=== PATIENT | male | born 1970 | race Caucasian/White ===

== ENCOUNTER 2019-03-26 20:26 | Emergency (ER) | payer BC ==
--- NOTE | 2019-03-26 20:49 | EDM.PDOC ---
ED HPI GENERAL MEDICAL PROBLEM - General Chief Complaint: General Stated Complaint: LIGHT HEADED Time Seen by Provider: 03/26/19 20:45 Source of Information: Reports: Patient History Limitations: Reports: No Limitations - History of Present Illness INITIAL COMMENTS - FREE TEXT/NARRATIVE: 48-year-old male who reports that he awoke at 5:30 AM today and rolled over on his side and had fairly intense lightheadedness. He reports that lightheadedness to him felt like the room was spinning. He did lay back down and the symptoms seemed to subside somewhat. He then was able to get up but noted that the dizziness and lightheadedness seemed to be worse with movement of his head from a lying to seating position but he was able to get up and actually went to work. He continued to have intermittent problems for the day and then when he came home at around 4 PM he took a nap until roughly 6:30 PM and still had the feeling of lightheadedness and room spinning. He had no headache. No chest pain. He had no localized area of numbness or weakness. He took another nap and when he awoke he was still having the symptoms and then had nausea with vomiting. He continues to have nausea and responding dizziness but no pain right now he would rate his pain as a 0/10. No vision problems. No ear pain or tinnitus and no ear discharge. No urinary symptoms. No diarrhea. He does report that he has been eating and drinking today just less than normal. There are no other associated signs or symptoms. There are no other modifying factors. 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 (see below) (Nothing) - Related Data Allergies Allergy/AdvReac Type Severity Reaction Status Date / Time No Known Allergies Allergy Verified 03/26/19 21:09 Home Meds: Home Meds Metoprolol Succinate 25 mg PO DAILY 03/26/19 [History] Triamterene/Hydrochlorothiazid [Triamterene-HCTZ 37.5-25 MG] 2 cap PO DAILY [History] Meclizine HCl 25 mg PO Q6H PRN #16 tablet 03/27/19 [Rx] Promethazine [Phenergan] 25 mg PO Q6H PRN #16 tab 03/27/19 [Rx] Past Medical History Cardiovascular History: Reports: Hypertension Musculoskeletal History: Reports: Other (See Below) (Peripheral edema on diuretic for this.) Endocrine/Metabolic History: Reports: Obesity/BMI 30+ - Past Surgical History Musculoskeletal Surgical History: Reports: Arthroscopic Knee (Bilateral knee arthroscopies 2) Social & Family History - Tobacco Use Smoking Status *Q: Never Smoker - Alcohol Use Alcohol Use Frequency: Rarely (Occasional alcohol use) - Living Situation & Occupation 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 ED ROS GENERAL - Review of Systems Review Of Systems: See Below Constitutional: Reports: No Symptoms HEENT: Reports: Vertigo Respiratory: Reports: No Symptoms Cardiovascular: Reports: No Symptoms Endocrine: Reports: No Symptoms GI/Abdominal: Reports: Nausea, Vomiting : Reports: No Symptoms Musculoskeletal: Reports: No Symptoms Skin: Reports: No Symptoms Neurological: Reports: Dizziness Hematologic/Lymphatic: Reports: No Symptoms Immunologic: Reports: No Symptoms ED EXAM, GENERAL - Physical Exam Exam: See Below Exam Limited By: No Limitations General Appearance: Alert, WD/WN, Moderate Distress Eye Exam: Bilateral Eye: EOMI (Mild lateral gaze nystagmus bilaterally), Normal Inspection, PERRL Ears: Normal External Exam, Normal TMs Ear Exam: Bilateral Ear: Auricle Normal, Canal Normal, TM normal Nose: Normal Inspection, Normal Mucosa, No Blood Throat/Mouth: Normal Voice, No Airway Compromise, Other (Somewhat dry mucous membranes) Head: Atraumatic, Normocephalic Neck: Normal Inspection, Supple, Non-Tender, Full Range of Motion Respiratory/Chest: No Respiratory Distress, Lungs Clear, Normal Breath Sounds, No Accessory Muscle Use, Chest Non-Tender Cardiovascular: Normal Peripheral Pulses, Regular Rate, Rhythm, No JVD Peripheral Pulses: 2+: Radial (L), Radial (R), Dorsalis Pedis (L), Dorsalis Pedis (R) GI/Abdominal: Normal Bowel Sounds, Soft, Non-Tender, No Mass, Other (Protuberant ) Back Exam: Normal Inspection Extremities: Normal Inspection, Normal Range of Motion, Non-Tender, Normal Capillary Refill, Pedal Edema (Trace, chronic) Neurological: Alert, Oriented, CN II-XII Intact, Normal Cognition, No Motor/ Sensory Deficits Skin Exam: Warm, Dry, Intact, Normal Color, No Rash EKG INTERPRETATION EKG Date: 03/26/19 Time: 20:41 Rhythm: NSR [place]: Normal P-Wave: Present QRS: Other (Nonspecific intraventricular conduction delay) ST-T: Other (Poor R-wave progression. Nonspecific ST-T changes) QT: Prolonged Comparison: NA - No Prior EKG Course - Vital Signs Last Recorded V/S: Last Vital Signs Temp 36.4 C 03/26/19 21:15 Pulse 68 03/26/19 21:15 Resp 22 H 03/26/19 21:15 BP 149/92 H 03/26/19 21:15 Pulse Ox 94 L 03/26/19 21:15 - Orders/Labs/Meds Orders: Active Orders 24 hr Category Date Time Status EKG Documentation Completion [RC] ASDIRECTED Care 03/26/19 20:51 Active Chest 1V Frontal [CR] Stat Exams 03/26/19 20:50 Taken Head wo Cont [CT] Stat Exams 03/26/19 21:06 Ordered Sodium Chloride 0.9% [Saline Flush] Med 03/26/19 20:50 Active 10 ml FLUSH ASDIRECTED PRN Peripheral IV Insertion Adult [OM.PC] Routine Oth 03/26/19 20:50 Ordered EKG 12 Lead [EK] Routine Ther 03/26/19 20:50 Ordered Medication Orders Sodium Chloride (Saline Flush) 10 ml FLUSH ASDIRECTED PRN PRN Reason: Keep Vein Open Labs: Laboratory Tests 03/26/19 03/26/19 03/26/19 Range/Units 20:59 20:59 20:59 WBC 11.2 (4.5-12.0) X10-3/uL RBC 5.55 (4.30-5.75) x10(6)uL Hgb 16.9 (13.5-17.8) g/dL Hct 48.5 (30.0-51.3) % MCV 87.5 (80-96) fL MCH 30.5 (27.7-33.6) pg MCHC 34.8 (32.2-35.4) g/dL RDW 13.3 (11.5-15.5) % Plt Count 189 (125-369) X10(3)uL MPV 9.7 (7.4-10.4) fL Neut % (Auto) 71.6 (46-82) % Lymph % (Auto) 17.3 (13-37) % [place] % (Auto) 6.6 (4-12) % Eos % (Auto) 3 (1.0-5.0) % Baso % (Auto) 1 (0-2) % Neut # (Auto) 8.1 (1.6-8.3) # Lymph # (Auto) 1.9 (0.6-5.0) # [place] # (Auto) 0.7 (0.0-1.3) # Eos # (Auto) 0.4 (0.0-0.8) # Baso # (Auto) 0.1 (0.0-0.2) # Sodium 143 (135-145) mmol/L Potassium 3.3 L (3.5-5.3) mmol/L Chloride 105 (100-110) mmol/L Carbon Dioxide 30 (21-32) mmol/L BUN 16 (7-18) mg/dL Creatinine 1.1 (0.70-1.30) mg/dL Est Cr Clr Drug Dosing TNP Estimated GFR (MDRD) > 60 (>60) BUN/Creatinine Ratio 14.5 (9-20) Glucose 111 (80-116) mg/dL Calcium 8.5 L (8.6-10.2) mg/dL Total Bilirubin 0.5 (0.1-1.3) mg/dL AST 18 (5-25) IU/L ALT 34 (12-36) U/L Alkaline Phosphatase 98 (56-112) IU/L Troponin I < 0.017 L (<0.017-0.056) ng/mL C-Reactive Protein 0.9 (0.5-0.9) mg/dL Total Protein 7.0 (6.0-8.0) g/dL Albumin 3.4 L (3.5-5.2) g/dL Globulin 3.6 g/dL Albumin/Globulin Ratio 0.9 Meds: Medications Generic Name Dose Route Start Last Admin Trade Name Freq PRN Reason Stop Dose Admin Sodium Chloride 10 ml 03/26/19 20:50 Saline Flush FLUSH ASDIRECTED PRN Keep Vein Open Discontinued Medications Generic Name Dose Route Start Last Admin Trade Name [place] PRN Reason Stop Dose Admin Diazepam 2.5 mg 03/26/19 21:06 03/26/19 21:42 Valium IV 03/26/19 21:07 2.5 mg ONETIME ONE Administration Diazepam 2.5 mg 03/26/19 22:35 03/26/19 22:48 Valium IV 03/26/19 22:36 2.5 mg ONETIME ONE Administration Sodium Chloride 1,000 mls @ 999 mls/hr 03/26/19 20:51 03/26/19 21:43 Normal Saline IV 03/26/19 21:51 999 mls/hr .BOLUS ONE Administration Promethazine HCl 25 mg/ Sodium 51 mls @ 200 mls/hr 03/26/19 22:36 03/26/19 22 :48 Chloride IV 03/26/19 22:51 200 mls/hr ONETIME ONE Administration Sodium Chloride 1,000 mls @ 999 mls/hr 03/26/19 22:36 03/26/19 22:49 Normal Saline IV 03/26/19 23:36 999 mls/hr .BOLUS ONE Administration Meclizine HCl 25 mg 03/26/19 22:35 03/26/19 22:48 Antivert PO 03/26/19 22:36 25 mg ONETIME ONE Administration Ondansetron HCl 4 mg 03/26/19 20:51 03/26/19 21:42 Zofran IVPUSH 03/26/19 20:52 4 mg ONETIME ONE Administration - Radiology Interpretation Free Text/Narrative:: Chest x-ray showed no acute disease. - Re-Assessments/Exams Free Text/Narrative Re-Assessment/Exam: 03/26/19 22:50: After 1 back of IV normal saline, Zofran and Valium IV, the patient feels improved but still somewhat nauseated. His dizziness is less. He refused the CT scan. However, he still has no localized area of numbness or weakness and really no signs of an acute CVA. His blood tests are reassuringly normal. His chest x-ray was normal. His EKG was normal. He appears to have peripheral vertigo most probably related to a viral labyrinthitis. I will give him an additional 1 L bolus of normal saline, additional Valium IV, Phenergan IV and meclizine by mouth. 03/27/19 00:05: One half of the second bag of IV fluids has been infused and the medications have been given. He is sleepy but his dizziness is essentially gone and his nausea is gone. He has had some slight to desaturations when he sleeps but he does appear to have sleep apnea. He has remained vitally stable and neurologically stable. The patient feels that he would want to go home now. I will discharge the patient with prescriptions of meclizine and Phenergan. He is to rest. He he is to drink plenty of fluids. No work for the next 2 days. And he should follow-up with his primary doctor in regard to these symptoms of vertigo and also in regard to potential latent sleep apnea. Departure - Departure Time of Disposition: 00:30 Disposition: Home, Self-Care 01 Condition: Good (Improved) Clinical Impression: Vertigo, Dehydration Labyrinthitis Qualifiers: Laterality: unspecified laterality Qualified Code(s): H83.09 - Labyrinthitis, unspecified ear Viral labyrinthitis syndrome Qualifiers: Laterality: unspecified laterality Qualified Code(s): H83.09 - Labyrinthitis, unspecified ear - Discharge Information Prescriptions: Meclizine HCl 25 mg PO Q6H PRN #16 tablet PRN Reason: Dizziness Promethazine [Phenergan] 25 mg PO Q6H PRN #16 tab PRN Reason: Nausea or dizziness Instructions: Dehydration, Adult, [id number], Vertigo, [id number], Labyrinthitis, [id number] Referrals: Emelyn Pitt [employer] APPLICATIONS ARCHITECT [Primary Care Provider] - Forms: ED Department Discharge Additional Instructions: You appear to have a viral infection that is affecting your inner ear called labyrinthitis. You also appear to have been somewhat dehydrated. As we discussed , your vertigo-type symptoms do not appear to be related to a stroke or brain problem, however, you should definitely come back if your symptoms worsen or you develop a headache or any areas of weakness or numbness. You should rest. You should drink plenty of fluids. No work for the next 2 days. Medication as prescribed (meclizine 25 mg, Phenergan 25 mg). You also appear to possibly have sleep apnea. You need to follow-up with your primary doctor next week in regard to your vertigo and to your possible sleep apnea. Back to the emergency department for headache, worse dizziness, localized area of weakness or numbness , unrelenting vomiting or any other concerning sign or symptom. - My Orders Last 24 Hours: My Active Orders 03/26/19 20:50 Chest 1V Frontal [CR] Stat Sodium Chloride 0.9% [Saline Flush] 10 ml FLUSH ASDIRECTED PRN Peripheral IV Insertion Adult [OM.PC] Routine EKG 12 Lead [EK] Routine 03/26/19 20:51 EKG Documentation Completion [RC] ASDIRECTED 03/26/19 21:06 Head wo Cont [CT] Stat - Assessment/Plan Last 24 Hours: My Active Orders 03/26/19 20:50 Chest 1V Frontal [CR] Stat Sodium Chloride 0.9% [Saline Flush] 10 ml FLUSH ASDIRECTED PRN Peripheral IV Insertion Adult [OM.PC] Routine EKG 12 Lead [EK] Routine 03/26/19 20:51 EKG Documentation Completion [RC] ASDIRECTED 03/26/19 21:06 Head wo Cont [CT] Stat
[2019-03-26] MEDS ORDERED: Sodium Chloride 0.9% 10 ML Syringe FLUSH PRN (20:50)
[2019-03-26] MEDS ORDERED: Sodium Chloride 0.9% 1,000 ML IV ONE ×2 (20:51→22:36)
[2019-03-26] MEDS ORDERED: Ondansetron 4 MG/2 ML SDV IVPUSH ONE (20:51)
[2019-03-26] MEDS ORDERED: diazePAM 5 MG/ML MDV IV ONE ×2 (21:06→22:35)
[2019-03-26] MEDS ORDERED: Meclizine 25 MG Tab PO ONE (22:35)
[2019-03-26] MEDS ORDERED: Promethazine 25 MG in Sodium Chloride 0.9% 50 ML IV ONE (22:36)
--- NOTE | 2019-03-27 11:27 | CR ---
INDICATION: Palpitations. CHEST: Portable AP upright view of the chest was obtained 03/26/19 - no comparisons. The heart is enlarged. The aorta is minimally tortuous. Overlying EKG leads are noted. An active infiltrate or effusion was not identified. Evidence of exogenous obesity is noted. IMPRESSION: 1. ASHD with cardiomegaly. 2. Exogenous obesity. 3. No definite acute process. MTDD
== END 2019-03-27 00:40 | disposition home or self-care (01) ==
LOC: FB.ED 20:26
DX: E86.0 Dehydration (principal); H83.09 Labyrinthitis, unspecified ear; I10 Essential (primary) hypertension; E66.9 Obesity, unspecified; Z68.42 Body mass index [BMI] 45.0-49.9, adult; Z79.899 Other long term (current) drug therapy
CPT/HCPCS: 36415; 71045; 80053; 84484; 85025; 86140; 93005; 96361; 96365; 96375; 96376; 99284; A9270; J2405; J2550; J3360; J7030; J7050